=== PATIENT | male | born 1955 | race Two or more races ===

== ENCOUNTER 2018-01-05 11:30 | Inpatient (IN) | payer MEDICARE ==
[2018-01-05 12:05] LABS: % BASOPHILS 1.4 % (0.0-2.0); % EOSINOPHILS 0.2 % (0.0-5.0); % LYMPHOCYTES 10.5 % (20.0-50.0); % MONOCYTES 7.7 % (2.0-10.0); % NEUTROPHILS 80.2 % (40.0-80.0); BASOPHILE ABSOLUTE 0.1 Th/cumm (0-0.2); HEMATOCRIT 46.8 % (41.0-60); HEMOGLOBIN 15.6 gm/dL (12-16); LYMPHOCYTE ABSOLUTE 0.9 Th/cmm (1.5-3.0); MEAN CELL VOLUME 91.8 fl (80-99); MEAN CORPUSCULAR HEMOGLOBIN 30.6 pg (26.0-30.0); MEAN CORPUSCULAR HGB CONC 33.4 pg (28.0-36.0); MEAN PLATELET VOLUME 7.4 fl; MONOCYTE ABSOLUTE 0.6 Th/cmm (0.3-1.0); NEUTROPHILE ABSOLUTE 6.5 Th/cmm (1.8-8.0); PLATELET COUNT 257 Th/cmm (150-400); RED CELL DISTRIBUTION WIDTH 12.8 % (11.5-20.0); WHITE BLOOD COUNT 8.1 Th/cmm (4.8-10.8)
[2018-01-05 12:16] LABS: INR 1.06 (0.5-1.4)
[2018-01-05 12:20] LABS: ALB/GLOB RATIO 1.3 (1.0-1.8); ALBUMIN 4.3 gm/dL (4.2-5.5); ALKALINE PHOSPHATASE 70 U/L (34-104); BILIRUBIN,TOTAL 0.7 mg/dL (0.3-1.0); BUN - UREA NITROGEN 15 mg/dL (7-25); CALCIUM SERUM 9.1 mg/dL (8.6-10.3); CARBON DIOXIDE 24.9 mEq/L (21.0-31.0); CHLORIDE 104 mEq/L (98-107); CREATININE - SERUM 0.8 mg/dL (0.7-1.3); GFR AFRICAN-AMERICAN > 60.0 ml/min (>90); GFR NON AFRICAN-AMERICAN > 60.0 ml/min; GLUCOSE 111 mg/dL (70-105); POTASSIUM SERUM 3.9 mEq/L (3.5-5.1); SGOT 17 U/L (13-39); SGPT/ALT 16 U/L (7-52); SODIUM SERUM 138 mEq/L (136-145); TOTAL PROTEIN,SERUM 7.5 gm/dL (6.0-8.3)
--- NOTE | 2018-01-05 12:27 | ED Physician Chart ---
ED Chief Complaint/HPI - Patient Information Date Seen:: 01/05/18 Time Seen:: 12:01 Chief Complaint:: psychosis History of Present Illness:: This is a 62 yo psych patient sent to this er for an evaluation for psych placement and treatment who is blind taking prozac medication. he also states that he had heart surgery in he past for a heart condition and that he takes medication for hypertension. Allergies:: Allergies Allergy/AdvReac Type Severity Reaction Status Date / Time No Known Allergies Allergy Verified 01/05/18 11:48 Vitals:: Vital Signs - 8 hr 01/05/18 11:50 Temp 97.7 F HR 82 RR 19 BP 138/72 O2 Sat % 99 Historian:: Patient, Medical Records Review:: Nurse's Note Reviewed, Transfer documents Reviewed ED Review of Systems - Review of Systems General/Constitutional: No fever, No chills, No weight loss, No weakness, No diaphoresis, No edema, No loss of appetite Skin: No skin lesions, No rash, No bruising Head: No headache, No light-headedness Eyes: No loss of vision, No pain, No diplopia, Other (blindness of both eyes) ENT: No earache, No nasal drainage, No sore throat, No tinnitus Neck: No neck pain, No swelling, No thyromegaly, No stiffness, No mass noted Cardio Vascular: No chest pain, No palpitations, No PND, No orthopnea, No edema Pulmonary: No SOB, No cough, No sputum, No wheezing GI: No nausea, No vomiting, No diarrhea, No pain, No melena, No hematochezia, No constipation, No hematemesis G/U: No dysuria, No frequency, No hematuria Musculoskeletal: No bone or joint pain, No back pain, No muscle pain Endocrine: No polyuria, No polydipsia Psychiatric: Prior psych history, Depression, Anxiety, No suicidal ideation Hematopoietic: No bruising, No lymphadenopathy Allergic/Immuno: No urticaria, No angioedema Neurological: No syncope, No focal symptoms, No weakness, No paresthesia, No headache, No seizure, No dizziness, No confusion, No vertigo ED Past Medical History - Past Medical History Obtainable: Yes Past Medical History: HTN, CAD Family History: None Social History: Non Smoker, No Alcohol, No Drug Use, Care Facility Surgical History: other (heart surgery) Psychiatricy History: Depression, Schizophrenia Medication: Reviewed ED Physical Exam - Physical Examination General/Constitutional: Awake, Well-developed, well-nourished, Alert, No distress, GCS 15, Non-toxic appearing, Ambulatory Head: Atraumatic Eyes: Lids, conjuctiva normal, PERRL, EOMI Skin: Nl inspection, No rash, No skin lesions, No ecchymosis, Well hydrated, No lymphadenopathy ENMT: External ears, nose nl, Nasal exam nl, Lips, teeth, gums nl Neck: Nontender, Full ROM w/o pain, No JVD, No nuchal rigidity, No bruit, No mass, No stridor Respiratory: Nl effort/Exclusion, Clear to Auscultation, No Wheeze/Rhonchi/Rales Cardio Vascular: RRR, No murmur, gallop, rubs, NL S1 S2 GI: No tenderness/rebounding/guarding, No organomegaly, No hernia, Normal BS's, Nondistended, No mass/bruits, No McBurney tenderness : No CVA tenderness Extremities: No tenderness or effusion, Full ROM, normal strength in all extremities, No edema, Normal digits & nails Neuro/Psych: Alert/oriented, DTR's symmetric, Normal sensory exam, Normal motor strength, Judgement/insight normal, Mood normal (depressed and anxious), Normal gait, No focal deficits Misc: Normal back, No paraspinal tenderness ED Labs/Radiology/EKG Results - Lab Results Results: Laboratory Tests 01/05/18 01/05/18 11:55 11:55 WBC 8.1 RBC 5.10 Hgb 15.6 Hct 46.8 MCV 91.8 MCH 30.6 H MCHC Differential 33.4 RDW 12.8 Plt Count 257 MPV 7.4 Neutrophils % 80.2 H Lymphocytes % 10.5 L Monocytes % 7.7 Eosinophils % 0.2 Basophils % 1.4 PT 11.0 INR 1.06 Comments:: Abnormal Lab Results 01/05/18 01/05/18 01/05/18 11:55 11:55 11:55 WBC 8.1 RBC 5.10 Hgb 15.6 Hct 46.8 MCV 91.8 MCH 30.6 H MCHC Differential 33.4 RDW 12.8 Plt Count 257 MPV 7.4 Neutrophils % 80.2 H Lymphocytes % 10.5 L Monocytes % 7.7 Eosinophils % 0.2 Basophils % 1.4 PT 11.0 INR 1.06 Sodium 138 Potassium 3.9 Chloride 104 Carbon Dioxide 24.9 Anion Gap 13.0 BUN 15 Creatinine 0.8 Est GFR ( Amer) > 60.0 Est GFR (Non-Af Amer) > 60.0 BUN/Creatinine Ratio 18.8 Glucose 111 H Calcium 9.1 Total Bilirubin 0.7 AST 17 ALT 16 Alkaline Phosphatase 70 Total Protein 7.5 Albumin 4.3 Globulin 3.2 Albumin/Globulin Ratio 1.3 - Radiology Results Results: chest x-ray == no acute disease - EKG Interpretations EKG Time:: 12:33 Rate & Rhythm: rate = 77, sinus [place]: right Intervals: no ectopy seen ED Assessment - Assessment General Assessment: psychosis ED Septic Shock - . Is Septic Shock (SBP<90, OR Lactate>4 mmol\L) present?: No - <6hrs of presentation: Vital Signs: Vital Signs - 8 hr 01/05/18 11:50 Temp 97.7 F HR 82 RR 19 BP 138/72 O2 Sat % 99 ED Reassessment (Disposition) - Reassessment Reassessment Condition:: Unchanged - Diagnosis Diagnosis:: psychosis - Patient Disposition Discharge/Transfer:: Acute Care w/in this hosp Admitting Medical Physician:: Yelena James Admitting Psych Physician:: Herbert Fields Condition at Disposition:: Unchanged
[2018-01-05 12:57] LABS: URINE SOURCE CLEAN C
[2018-01-05 13:01] LABS: URINE BILIRUBIN NEGATIVE (NEGATIVE); URINE BLOOD SMALL (NEGATIVE); URINE GLUCOSE (UA) NEGATIVE (NEGATIVE); URINE KETONE NEGATIVE (NEGATIVE); URINE LEUKOCYTE ESTERASE NEGATIVE (NEGATIVE); URINE MICROSCOPIC INDICATED? YES; URINE NITRATE NEGATIVE (NEGATIVE); URINE PROTEIN NEGATIVE (NEGATIVE); URINE UROBILINOGEN 0.2 E.U./dL (0.2 - 1.0)
[2018-01-05 13:08] LABS: URINE CLARITY CLEAR (CLEAR); URINE COLOR YELLOW
[2018-01-05 13:13] LABS: URINE EPITHELIAL CELLS RARE /lpf (FEW); URINE RBC 0-2 /hpf (0-5); URINE WBC 0-2 /hpf (0-5)
[2018-01-05 13:14] LABS: URINE BACTERIA RARE /hpf (NONE SEEN); URINE SPERM FEW /hpf (NONE SEEN)
[2018-01-05 13:36] VITALS: BP 143/83
[2018-01-05] MEDS ORDERED: Magnesium Hydroxide (MOM) 30 mL UDC PO PRN (13:45)
[2018-01-05] MEDS ORDERED: Maalox 30 mL Cup PO PRN (13:45)
[2018-01-06] MEDS ORDERED: Non-Formulary Item 1 EA (Fluoxetine Hcl [Prozac] 40 MG) PO SCH (09:00)
[2018-01-06] MEDS: Multivitamin Tab PO SCH (09:19)
--- NOTE | 2018-01-06 09:36 | Diagnostic Imaging Report ---
CHEST X-RAY: AP view INDICATION: pain COMPARISON: None FINDINGS: Chronic interstitial lung changes are noted. There is no focal consolidation or pleural effusions The heart is normal in size. The osseous structures demonstrate no acute abnormalities. IMPRESSION: Chronic interstitial lung changes and possible COPD. No focal consolidation identified.
--- NOTE | 2018-01-06 16:59 | Psychiatric Evaluation ---
DATE OF SERVICE: 01/06/2018 IDENTIFYING DATA: The patient is a 62-year-old male living with his sister. Information obtained by directly interviewing the patient as well as reviewing the admission papers. JUSTIFICATION OF HOSPITALIZATION: The patient is admitted here on a 5150 as a danger to self. 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 Currently, the patient is feeling depressed and is stating that he is devil and he needs to punish himself. The patient has been evaluated at the ____ and was placed on a 5150 and admitted over here for stabilization. PAST PSYCHIATRIC HISTORY: Details are not known. MEDICAL HISTORY: Physical examination is requested to be done by Dr. James. SUBSTANCE ABUSE HISTORY: None. PHYSICAL OR SEXUAL ABUSE HISTORY: None. LEGAL PROBLEMS: None at this time. STRENGTH AND ASSETS: The patient is motivated and is living with his sister in [place]. MENTAL STATUS EXAMINATION: The patient is a 62-year-old, looking his stated age. Cooperative. Eye contact is fair. Mood is noted to be irritable. Affect is constricted. Insight and judgment at this time are noted to be still impaired. Impulse control seemed to be limited. Coping skills are noted to be limited. The patient is not presenting with any suicidal plans, but the patient feels helpless and hopeless. The patient's coping skills are noted to be extremely poor at this time. The patient has paranoia, but denies any command hallucinations. The patient is alert and oriented x 3. 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 DIAGNOSTIC IMPRESSION: Major depressive disorder, recurrent with psychotic symptoms. PLAN: To continue the patient with the Prozac and Risperdal and follow the patient. ESTIMATED LENGTH OF STAY: 5-7 days. DISCHARGE CRITERIA: He no longer a threat to self or others and be able to cope up with the stress. JOB# [id number]
--- NOTE | 2018-01-06 23:23 | History & Physical ---
ADMIT DATE: 01/05/2018 The patient was brought to the Emergency Room, was cleared and the patient was admitted to the psychiatric unit. The patient is a 62-year-old psych patient. The patient came in because the patient is having problem with agitation and confusion and hearing things. The patient is known to have history of blindness, history of heart condition, also has history of hypertension, taking medication. The patient was seen in the Emergency Room, was clear. The patient has no pain. No fever, no chills, no rigors. History of hypertension and coronary artery disease. PHYSICAL EXAMINATION: GENERAL: Well-developed, well-nourished male patient. VITAL SIGNS: As noted in the chart. HEAD: Normal. ENT: Normal. NECK: Supple, nontender. LUNGS: Clear. CARDIOVASCULAR SYSTEM: S1, S2 heard. ABDOMEN: Soft. Bowel sounds are heard. CENTRAL NERVOUS SYSTEM: Grossly normal. LABORATORY DATA: Hemoglobin was 15, creatinine was normal. Electrolytes were normal and the patient's x-ray was negative. The patient's EKG showed normal sinus rhythm. DIAGNOSES: Acute psychosis, history of hypertension, history of heart disease, history of blindness and history of heart surgery in the past. I am going to go ahead and continue all his medication and I will follow the patient along medically. [facility]# [id number]
[2018-01-07] MEDS: Multivitamin Tab PO SCH (09:05)
--- NOTE | 2018-01-07 15:40 | General Progress Note ---
Subjective - Review of Systems Events since last encounter: patient still very confused paranoid Objective - Results Result Diagrams: 01/05/18 11:55 01/05/18 11:55 Recent Labs: Laboratory Last Values WBC 8.1 Th/cmm (4.8-10.8) 01/05/18 11:55 RBC 5.10 Mil/cmm (4.30-5.70) 01/05/18 11:55 Hgb 15.6 gm/dL (12-16) 01/05/18 11:55 Hct 46.8 % (41.0-60) 01/05/18 11:55 MCV 91.8 fl (80-99) 01/05/18 11:55 MCH 30.6 pg (26.0-30.0) H 01/05/18 11:55 MCHC Differential 33.4 pg (28.0-36.0) 01/05/18 11:55 RDW 12.8 % (11.5-20.0) 01/05/18 11:55 Plt Count 257 Th/cmm (150-400) 01/05/18 11:55 MPV 7.4 fl 01/05/18 11:55 Neutrophils % 80.2 % (40.0-80.0) H 01/05/18 11:55 Lymphocytes % 10.5 % (20.0-50.0) L 01/05/18 11:55 Monocytes % 7.7 % (2.0-10.0) 01/05/18 11:55 Eosinophils % 0.2 % (0.0-5.0) 01/05/18 11:55 Basophils % 1.4 % (0.0-2.0) 01/05/18 11:55 PT 11.0 SECONDS (9.5-11.5) 01/05/18 11:55 INR 1.06 (0.5-1.4) 01/05/18 11:55 Sodium 138 mEq/L (136-145) 01/05/18 11:55 Potassium 3.9 mEq/L (3.5-5.1) 01/05/18 11:55 Chloride 104 mEq/L (98-107) 01/05/18 11:55 Carbon Dioxide 24.9 mEq/L (21.0-31.0) 01/05/18 11:55 Anion Gap 13.0 (7.0-16.0) 01/05/18 11:55 BUN 15 mg/dL (7-25) 01/05/18 11:55 Creatinine 0.8 mg/dL (0.7-1.3) 01/05/18 11:55 Est GFR ( Amer) > 60.0 ml/min (>90) 01/05/18 11:55 Est GFR (Non-Af Amer) > 60.0 ml/min 01/05/18 11:55 BUN/Creatinine Ratio 18.8 01/05/18 11:55 Glucose 111 mg/dL (70-105) H 01/05/18 11:55 Calcium 9.1 mg/dL (8.6-10.3) 01/05/18 11:55 Total Bilirubin 0.7 mg/dL (0.3-1.0) 01/05/18 11:55 AST 17 U/L (13-39) 01/05/18 11:55 ALT 16 U/L (7-52) 01/05/18 11:55 Alkaline Phosphatase 70 U/L (34-104) 01/05/18 11:55 Total Protein 7.5 gm/dL (6.0-8.3) 01/05/18 11:55 Albumin 4.3 gm/dL (4.2-5.5) 01/05/18 11:55 Globulin 3.2 gm/dL 01/05/18 11:55 Albumin/Globulin Ratio 1.3 (1.0-1.8) 01/05/18 11:55 TSH 1.81 uIU/ml (0.34-5.60) 01/05/18 11:55 Urine Source CLEAN C 01/05/18 11:40 Urine Color YELLOW 01/05/18 11:40 Urine Clarity CLEAR (CLEAR) 01/05/18 11:40 Urine pH 6.0 (4.6 - 8.0) 01/05/18 11:40 Ur Specific [place] 1.020 (1.005-1.030) 01/05/18 11:40 Urine Protein NEGATIVE mg/dL (NEGATIVE) 01/05/18 11:40 Urine Glucose (UA) NEGATIVE mg/dL (NEGATIVE) 01/05/18 11:40 Urine Ketones NEGATIVE mg/dL (NEGATIVE) 01/05/18 11:40 Urine Blood SMALL (NEGATIVE) H 01/05/18 11:40 Urine Nitrate NEGATIVE (NEGATIVE) 01/05/18 11:40 Urine Bilirubin NEGATIVE (NEGATIVE) 01/05/18 11:40 Urine Urobilinogen 0.2 E.U./dL (0.2 - 1.0) 01/05/18 11:40 Ur Leukocyte Esterase NEGATIVE (NEGATIVE) 01/05/18 11:40 Urine RBC 0-2 /hpf (0-5) H 01/05/18 11:40 Urine WBC 0-2 /hpf (0-5) 01/05/18 11:40 Ur Epithelial Cells RARE /lpf (FEW) 01/05/18 11:40 Urine Bacteria RARE /hpf (NONE SEEN) 01/05/18 11:40 Urine Mucus FEW /lpf (FEW) 01/05/18 11:40 Urine Sperm FEW /hpf (NONE SEEN) 01/05/18 11:40 - Physical Exam Vitals and I&O: Vital Signs Temp 97.6 F 01/07/18 14:27 Pulse 85 01/07/18 14:27 Resp 20 01/07/18 14:27 BP 123/76 01/07/18 14:27 Pulse Ox 97 01/07/18 14:27 Active Medications: Current Medications Acetaminophen (Tylenol) 650 mg PO Q4HR PRN PRN Reason: Mild Pain / Temp above 100 Stop: 03/06/18 13:44 Al Hydrox/Mg Hydrox/Simethicone (Maalox) 30 ml PO Q4HR PRN PRN Reason: GI DISTRESS Stop: 03/06/18 13:44 Amlodipine Besylate (Norvasc) 5 mg PO DAILY RE Stop: 03/07/18 08:59 Last Admin: 01/07/18 09:05 Dose: Not Given Fluoxetine HCl (Prozac) 40 mg PO DAILY RE Stop: 03/07/18 08:59 Last Admin: 01/07/18 09:05 Dose: 40 mg Lorazepam (Ativan) 0.5 mg PO Q4HR PRN; Protocol PRN Reason: Anxiety Stop: 02/04/18 13:44 Last Admin: 01/06/18 21:52 Dose: 0.5 mg Magnesium Hydroxide (Milk Of Magnesia) 30 ml PO HS PRN PRN Reason: Constipation Multivitamins/Vitamin C (Theragran) 1 tab PO DAILY RE Stop: 03/07/18 08:59 Last Admin: 01/07/18 09:05 Dose: 1 tab Risperidone (Risperdal) 1 mg PO BID RE; Protocol Stop: 03/06/18 16:59 Last Admin: 01/07/18 09:05 Dose: 1 mg Zolpidem Tartrate (Ambien) 5 mg PO HS PRN PRN Reason: Insomnia Stop: 03/06/18 13:44 Last Admin: 01/06/18 21:52 Dose: 5 mg Assessment/Plan - Problem List Patient Problems: All Active Problems THINKING OF WAYS TO KILL SELF (Acute)
--- NOTE | 2018-01-08 02:21 | Progress Notes ---
DATE: 01/07/2018 PSYCHIATRIC PROGRESS NOTE SUBJECTIVE: Staff was spoken to. The patient is interviewed. Mood is noted to be depressed. Affect is constricted. Insight and judgment are noted to be still impaired. Impulse control is noted to be limited. The patient is still suicidal. No homicidal ideation is noted. The patient is isolative and withdrawn. ASSESSMENT: The patient is still depressed. PLAN: To continue the patient with supportive therapy and follow up. JOB# [id number]
--- NOTE | 2018-01-08 02:48 | Consultation ---
DATE OF CONSULTATION: 01/07/2018 REFERRING PHYSICIAN: Herbert Fields M.D. TYPE OF CONSULTATION: Psychology. HISTORY OF PRESENT ILLNESS: The patient is a 62-year-old male. The patient lives with his sister according to the record. The patient is being admitted on 5150 as possible danger to self. The following is by review of the medical record and the patient's self-report. The patient stated that he was working until recently. The patient has been making statements about being the devil and the need to be punished. The patient denied any suicidal or homicidal ideation, plan or intention. The patient appears to be overtly psychotic as well as confused. He denied any suicidal ideation, plan or intention. PAST MEDICAL HISTORY: Please see history and physical by Dr. James. PAST PSYCHIATRIC HISTORY: Details are unknown. SUBSTANCE ABUSE HISTORY: The patient did not answer this question. PSYCHOSOCIAL HISTORY: The patient did not answer questions about family involvement or marital status or number of children. 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 The patient states he lives with his sister. The patient denied any history of physical or sexual abuse. The patient states that he is a Jainism. The patient stated no current legal problems. MENTAL STATUS EXAMINATION: The patient appears to be his stated age. The patient's attitude is cooperative. Eye contact is fair. Speech is spontaneous. Mood is easily frustrated. Affect is constricted. Thought process shows to be confused with possible delusional content. The patient denied any suicidal ideation, plan or intention. He denied any auditory or visual hallucinations. The patient stated that he feels hopeless. The patient stated possible hyper-anabaptism delusions, i.e., that he is the devil and needs to be punished. There is some evidence of paranoid ideation. The patient's behavior on the unit has been redirectable. Impulse control is fair. Concentration is fair to poor. Sensorium is alert and oriented x 3. The patient did not participate in the memory assessment. The patient did not participate in the interpretation of proverbs. Insight is poor. Judgment is compromised. DIAGNOSTIC IMPRESSION: AXIS I: Major depressive disorder, recurrent with psychotic symptoms. AXIS II: Deferred. AXIS III: Please see history and physical by Dr. James. TREATMENT PLAN: The patient has been seen by Dr. Fields for psychiatric evaluation and for the management of the patient's psychotropic medications. The patient is being continued on Prozac and Risperdal. We will provide supportive psychotherapy to include coping strategies for phase of life issues. We will provide reality orientation, reality differentiation, and reality integration. We will provide cognitive behavioral therapy to reduce the patient's depression and include coping mechanisms. We will provide motivational enhancement for the patient to become compliant and stay compliant with all aspects of his care and treatment. We will encourage the patient to verbalize his concerns and verbally contract for safety. Thank you, Dr. Fields, for this consult and the opportunity to participate in this patient's care. JOB# [id number] [place]
[2018-01-08] MEDS: Multivitamin Tab PO SCH (08:48)
--- NOTE | 2018-01-08 15:42 | Progress Notes ---
DATE: 01/08/2018 SUBJECTIVE: Staff was spoken to. The patient is interviewed. Mood is noted to be irritable. Affect is constricted. The patient is isolative and withdrawn. Coping skills are noted to be still poor. The patient is currently on 40 mg of the Prozac and the Risperdal 1 mg b.i.d. and has been able to tolerate the medication. No side effects to the medications are noted at this time. The patient is isolative and withdrawn. ASSESSMENT: The patient is still depressed. PLAN: To continue the patient with the supportive therapy. I encouraged the patient to verbalize the concerns rather than to act out. JOB# [id number]
[2018-01-09] MEDS: Multivitamin Tab PO SCH (08:39)
--- NOTE | 2018-01-09 14:13 | General Progress Note ---
Subjective - Review of Systems Events since last encounter: patient still depressed withdrawn denies cp,sob Objective - Results Result Diagrams: 01/05/18 11:55 01/05/18 11:55 Recent Labs: Laboratory Last Values WBC 8.1 Th/cmm (4.8-10.8) 01/05/18 11:55 RBC 5.10 Mil/cmm (4.30-5.70) 01/05/18 11:55 Hgb 15.6 gm/dL (12-16) 01/05/18 11:55 Hct 46.8 % (41.0-60) 01/05/18 11:55 MCV 91.8 fl (80-99) 01/05/18 11:55 MCH 30.6 pg (26.0-30.0) H 01/05/18 11:55 MCHC Differential 33.4 pg (28.0-36.0) 01/05/18 11:55 RDW 12.8 % (11.5-20.0) 01/05/18 11:55 Plt Count 257 Th/cmm (150-400) 01/05/18 11:55 MPV 7.4 fl 01/05/18 11:55 Neutrophils % 80.2 % (40.0-80.0) H 01/05/18 11:55 Lymphocytes % 10.5 % (20.0-50.0) L 01/05/18 11:55 Monocytes % 7.7 % (2.0-10.0) 01/05/18 11:55 Eosinophils % 0.2 % (0.0-5.0) 01/05/18 11:55 Basophils % 1.4 % (0.0-2.0) 01/05/18 11:55 PT 11.0 SECONDS (9.5-11.5) 01/05/18 11:55 INR 1.06 (0.5-1.4) 01/05/18 11:55 Sodium 138 mEq/L (136-145) 01/05/18 11:55 Potassium 3.9 mEq/L (3.5-5.1) 01/05/18 11:55 Chloride 104 mEq/L (98-107) 01/05/18 11:55 Carbon Dioxide 24.9 mEq/L (21.0-31.0) 01/05/18 11:55 Anion Gap 13.0 (7.0-16.0) 01/05/18 11:55 BUN 15 mg/dL (7-25) 01/05/18 11:55 Creatinine 0.8 mg/dL (0.7-1.3) 01/05/18 11:55 Est GFR ( Amer) > 60.0 ml/min (>90) 01/05/18 11:55 Est GFR (Non-Af Amer) > 60.0 ml/min 01/05/18 11:55 BUN/Creatinine Ratio 18.8 01/05/18 11:55 Glucose 111 mg/dL (70-105) H 01/05/18 11:55 Calcium 9.1 mg/dL (8.6-10.3) 01/05/18 11:55 Total Bilirubin 0.7 mg/dL (0.3-1.0) 01/05/18 11:55 AST 17 U/L (13-39) 01/05/18 11:55 ALT 16 U/L (7-52) 01/05/18 11:55 Alkaline Phosphatase 70 U/L (34-104) 01/05/18 11:55 Total Protein 7.5 gm/dL (6.0-8.3) 01/05/18 11:55 Albumin 4.3 gm/dL (4.2-5.5) 01/05/18 11:55 Globulin 3.2 gm/dL 01/05/18 11:55 Albumin/Globulin Ratio 1.3 (1.0-1.8) 01/05/18 11:55 TSH 1.81 uIU/ml (0.34-5.60) 01/05/18 11:55 Urine Source CLEAN C 01/05/18 11:40 Urine Color YELLOW 01/05/18 11:40 Urine Clarity CLEAR (CLEAR) 01/05/18 11:40 Urine pH 6.0 (4.6 - 8.0) 01/05/18 11:40 Ur Specific [place] 1.020 (1.005-1.030) 01/05/18 11:40 Urine Protein NEGATIVE mg/dL (NEGATIVE) 01/05/18 11:40 Urine Glucose (UA) NEGATIVE mg/dL (NEGATIVE) 01/05/18 11:40 Urine Ketones NEGATIVE mg/dL (NEGATIVE) 01/05/18 11:40 Urine Blood SMALL (NEGATIVE) H 01/05/18 11:40 Urine Nitrate NEGATIVE (NEGATIVE) 01/05/18 11:40 Urine Bilirubin NEGATIVE (NEGATIVE) 01/05/18 11:40 Urine Urobilinogen 0.2 E.U./dL (0.2 - 1.0) 01/05/18 11:40 Ur Leukocyte Esterase NEGATIVE (NEGATIVE) 01/05/18 11:40 Urine RBC 0-2 /hpf (0-5) H 01/05/18 11:40 Urine WBC 0-2 /hpf (0-5) 01/05/18 11:40 Ur Epithelial Cells RARE /lpf (FEW) 01/05/18 11:40 Urine Bacteria RARE /hpf (NONE SEEN) 01/05/18 11:40 Urine Mucus FEW /lpf (FEW) 01/05/18 11:40 Urine Sperm FEW /hpf (NONE SEEN) 01/05/18 11:40 - Physical Exam Vitals and I&O: Vital Signs Temp 97.8 F 01/09/18 04:45 Pulse 68 01/09/18 08:38 Resp 19 01/09/18 04:45 BP 123/77 01/09/18 08:38 Pulse Ox 98 01/09/18 04:45 Intake & Output 01/08/18 01/09/18 01/09/18 18:59 06:59 18:59 Intake Total 740 Balance 740 Intake: Oral 740 Other: # Voids 2 2 # Bowel Movements 0 0 Active Medications: Current Medications Acetaminophen (Tylenol) 650 mg PO Q4HR PRN PRN Reason: Mild Pain / Temp above 100 Stop: 03/06/18 13:44 Al Hydrox/Mg Hydrox/Simethicone (Maalox) 30 ml PO Q4HR PRN PRN Reason: GI DISTRESS Stop: 03/06/18 13:44 Amlodipine Besylate (Norvasc) 5 mg PO DAILY RE Stop: 03/07/18 08:59 Last Admin: 01/09/18 08:38 Dose: 5 mg Fluoxetine HCl (Prozac) 40 mg PO DAILY RE Stop: 03/07/18 08:59 Last Admin: 01/09/18 08:39 Dose: 40 mg Lorazepam (Ativan) 0.5 mg PO Q4HR PRN; Protocol PRN Reason: Anxiety Stop: 02/04/18 13:44 Last Admin: 01/09/18 10:40 Dose: 0.5 mg Magnesium Hydroxide (Milk Of Magnesia) 30 ml PO HS PRN PRN Reason: Constipation Multivitamins/Vitamin C (Theragran) 1 tab PO DAILY RE Stop: 03/07/18 08:59 Last Admin: 01/09/18 08:39 Dose: 1 tab Risperidone (Risperdal) 1 mg PO BID RE; Protocol Stop: 03/06/18 16:59 Last Admin: 01/09/18 08:39 Dose: 1 mg Zolpidem Tartrate (Ambien) 5 mg PO HS PRN PRN Reason: Insomnia Stop: 03/06/18 13:44 Last Admin: 01/06/18 21:52 Dose: 5 mg Assessment/Plan - Problem List Patient Problems: All Active Problems THINKING OF WAYS TO KILL SELF (Acute)
--- NOTE | 2018-01-10 01:25 | Progress Notes ---
DATE: 01/09/2018 PSYCHIATRIC PROGRESS NOTE SUBJECTIVE: Staff was spoken to. The patient is interviewed. Mood is noted to be irritable. Affect is constricted. The patient is stating that he is out of his surroundings and he does not feel comfortable. Coping skills are noted to be poor at this time. The patient is still depressed. Paranoia is noted, but the patient denies any command hallucinations. ASSESSMENT: The patient is still depressed. PLAN: To continue the patient with the current medications and follow up with supportive therapy. JOB# [id number]
[2018-01-10] MEDS: Multivitamin Tab PO SCH (09:42)
--- NOTE | 2018-01-10 11:40 | General Progress Note ---
Subjective - Review of Systems Events since last encounter: patient still depressed Objective - Results Result Diagrams: 01/05/18 11:55 01/05/18 11:55 Recent Labs: Laboratory Last Values WBC 8.1 Th/cmm (4.8-10.8) 01/05/18 11:55 RBC 5.10 Mil/cmm (4.30-5.70) 01/05/18 11:55 Hgb 15.6 gm/dL (12-16) 01/05/18 11:55 Hct 46.8 % (41.0-60) 01/05/18 11:55 MCV 91.8 fl (80-99) 01/05/18 11:55 MCH 30.6 pg (26.0-30.0) H 01/05/18 11:55 MCHC Differential 33.4 pg (28.0-36.0) 01/05/18 11:55 RDW 12.8 % (11.5-20.0) 01/05/18 11:55 Plt Count 257 Th/cmm (150-400) 01/05/18 11:55 MPV 7.4 fl 01/05/18 11:55 Neutrophils % 80.2 % (40.0-80.0) H 01/05/18 11:55 Lymphocytes % 10.5 % (20.0-50.0) L 01/05/18 11:55 Monocytes % 7.7 % (2.0-10.0) 01/05/18 11:55 Eosinophils % 0.2 % (0.0-5.0) 01/05/18 11:55 Basophils % 1.4 % (0.0-2.0) 01/05/18 11:55 PT 11.0 SECONDS (9.5-11.5) 01/05/18 11:55 INR 1.06 (0.5-1.4) 01/05/18 11:55 Sodium 138 mEq/L (136-145) 01/05/18 11:55 Potassium 3.9 mEq/L (3.5-5.1) 01/05/18 11:55 Chloride 104 mEq/L (98-107) 01/05/18 11:55 Carbon Dioxide 24.9 mEq/L (21.0-31.0) 01/05/18 11:55 Anion Gap 13.0 (7.0-16.0) 01/05/18 11:55 BUN 15 mg/dL (7-25) 01/05/18 11:55 Creatinine 0.8 mg/dL (0.7-1.3) 01/05/18 11:55 Est GFR ( Amer) > 60.0 ml/min (>90) 01/05/18 11:55 Est GFR (Non-Af Amer) > 60.0 ml/min 01/05/18 11:55 BUN/Creatinine Ratio 18.8 01/05/18 11:55 Glucose 111 mg/dL (70-105) H 01/05/18 11:55 Calcium 9.1 mg/dL (8.6-10.3) 01/05/18 11:55 Total Bilirubin 0.7 mg/dL (0.3-1.0) 01/05/18 11:55 AST 17 U/L (13-39) 01/05/18 11:55 ALT 16 U/L (7-52) 01/05/18 11:55 Alkaline Phosphatase 70 U/L (34-104) 01/05/18 11:55 Total Protein 7.5 gm/dL (6.0-8.3) 01/05/18 11:55 Albumin 4.3 gm/dL (4.2-5.5) 01/05/18 11:55 Globulin 3.2 gm/dL 01/05/18 11:55 Albumin/Globulin Ratio 1.3 (1.0-1.8) 01/05/18 11:55 TSH 1.81 uIU/ml (0.34-5.60) 01/05/18 11:55 Urine Source CLEAN C 01/05/18 11:40 Urine Color YELLOW 01/05/18 11:40 Urine Clarity CLEAR (CLEAR) 01/05/18 11:40 Urine pH 6.0 (4.6 - 8.0) 01/05/18 11:40 Ur Specific [place] 1.020 (1.005-1.030) 01/05/18 11:40 Urine Protein NEGATIVE mg/dL (NEGATIVE) 01/05/18 11:40 Urine Glucose (UA) NEGATIVE mg/dL (NEGATIVE) 01/05/18 11:40 Urine Ketones NEGATIVE mg/dL (NEGATIVE) 01/05/18 11:40 Urine Blood SMALL (NEGATIVE) H 01/05/18 11:40 Urine Nitrate NEGATIVE (NEGATIVE) 01/05/18 11:40 Urine Bilirubin NEGATIVE (NEGATIVE) 01/05/18 11:40 Urine Urobilinogen 0.2 E.U./dL (0.2 - 1.0) 01/05/18 11:40 Ur Leukocyte Esterase NEGATIVE (NEGATIVE) 01/05/18 11:40 Urine RBC 0-2 /hpf (0-5) H 01/05/18 11:40 Urine WBC 0-2 /hpf (0-5) 01/05/18 11:40 Ur Epithelial Cells RARE /lpf (FEW) 01/05/18 11:40 Urine Bacteria RARE /hpf (NONE SEEN) 01/05/18 11:40 Urine Mucus FEW /lpf (FEW) 01/05/18 11:40 Urine Sperm FEW /hpf (NONE SEEN) 01/05/18 11:40 - Physical Exam Vitals and I&O: Vital Signs Temp 98.6 F 01/10/18 06:55 Pulse 90 01/10/18 09:41 Resp 20 01/10/18 06:55 BP 109/63 01/10/18 09:41 Pulse Ox 97 01/10/18 06:55 Intake & Output 01/09/18 01/10/18 01/10/18 18:59 06:59 18:59 Intake Total 500 Balance 500 Intake: Oral 500 Other: # Voids 4 # Bowel Movements 0 Active Medications: Current Medications Acetaminophen (Tylenol) 650 mg PO Q4HR PRN PRN Reason: Mild Pain / Temp above 100 Stop: 03/06/18 13:44 Al Hydrox/Mg Hydrox/Simethicone (Maalox) 30 ml PO Q4HR PRN PRN Reason: GI DISTRESS Stop: 03/06/18 13:44 Amlodipine Besylate (Norvasc) 5 mg PO DAILY RE Stop: 03/07/18 08:59 Last Admin: 01/10/18 09:41 Dose: 5 mg Fluoxetine HCl (Prozac) 40 mg PO DAILY RE Stop: 03/07/18 08:59 Last Admin: 01/10/18 09:40 Dose: 40 mg Lorazepam (Ativan) 0.5 mg PO Q4HR PRN; Protocol PRN Reason: Anxiety Stop: 02/04/18 13:44 Last Admin: 01/10/18 10:23 Dose: 0.5 mg Magnesium Hydroxide (Milk Of Magnesia) 30 ml PO HS PRN PRN Reason: Constipation Multivitamins/Vitamin C (Theragran) 1 tab PO DAILY RE Stop: 03/07/18 08:59 Last Admin: 01/10/18 09:42 Dose: 1 tab Risperidone (Risperdal) 1 mg PO BID RE; Protocol Stop: 03/06/18 16:59 Last Admin: 01/10/18 09:42 Dose: 1 mg Zolpidem Tartrate (Ambien) 5 mg PO HS PRN PRN Reason: Insomnia Stop: 03/06/18 13:44 Last Admin: 01/09/18 21:06 Dose: 5 mg Assessment/Plan - Problem List Patient Problems: All Active Problems THINKING OF WAYS TO KILL SELF (Acute)
--- NOTE | 2018-01-10 21:55 | Progress Notes ---
DATE: 01/10/2018 SUBJECTIVE: Staff was spoken to. The patient is interviewed. Mood is noted to be anxious. The patient is stating that he has been doing a little bit okay today and suicidal ideation is resolving. No homicidal ideation is noted. The patient denies any command hallucinations at this time. The patient is stating that he misses his sister and he wants to go back and the outsole caser has been requested to coordinate the care with the sister and possibly set of a family session and arrange for the outpatient followup. JOB# [id number]
[2018-01-11] MEDS: Multivitamin Tab PO SCH (09:37)
--- NOTE | 2018-01-12 04:26 | Progress Notes ---
DATE: 01/11/2018 SUBJECTIVE: Staff was spoken to. The patient is interviewed. Mood is noted to be anxious. Affect is appropriate. Not suicidal or homicidal. Insight and judgment are noted to be improving. Impulse control is noted to be fair. Coping skills are noted to be fair. The patient has been able to verbalize the concerns rather than to act out. ASSESSMENT: The patient is stabilizing. PLAN: To discharge the patient today for followup on outpatient basis. JOB# [id number]
--- NOTE | 2018-01-25 20:28 | Discharge Summary ---
DATE OF DISCHARGE: 01/11/2018 IDENTIFYING DATA: The patient is a 62-year-old male living with his sister. JUSTIFICATION OF HOSPITALIZATION: The patient is admitted here on a 5150 as a danger to self. CHIEF COMPLAINT: "I'm feeling depressed." DIAGNOSES AT THE TIME OF THE ADMISSION: AXIS I: Major depressive disorder, recurrent with psychotic symptoms. AXIS II: None. AXIS III: As per Dr. James. HISTORY OF PRESENT ILLNESS: Please refer to the 01/06/2018 dictation done by me. Physical examination was done by Dr. James and is noted to be significant for a history of hypertension and coronary artery disease. HOSPITAL COURSE AND RESPONSE TO TREATMENT: The patient has been observed on inpatient unit, provided with supportive psychotherapy. The patient has been closely monitored for any suicidal gestures and the patient has been provided with the individual as well as family counseling and the patient started doing fairly well and the patient has been placed on the Prozac, which was gradually increased to 40 mg. The patient also has been given the Risperdal 1 mg at bedtime and has been encouraged to participate in the groups and verbalize the concerns. The patient's blood work has been reviewed and is noted to be within normal limits. The patient was finally discharged to the care of his sister to be followed up on an outpatient basis. MENTAL STATUS EXAMINATION: At the time of discharge, the patient's mood is noted to be anxious. Affect is appropriate. Not suicidal or homicidal. Insight and judgment are noted to be improving. Impulse control seems to be fair. Coping skills are also noted to be fair. The patient is not presenting with any threats to harm self or others at the time of discharge. CONDITION AT THE TIME OF DISCHARGE: Noted to be stable. DIAGNOSES AT THE TIME OF DISCHARGE: AXIS I: Major depressive disorder, recurrent with psychotic symptoms. AXIS II: None. AXIS III: Hypertension. AFTERCARE PLAN: The patient is discharged to [facility] to be followed up on an outpatient basis. PROGNOSIS: At the time of discharge is noted to be fair with the treatment. [facility]# [id number]
== END 2018-01-11 16:30 | disposition home or self-care (01) | DRG 885 ==
LOC: ER 11:30 → GERO2 12:48
PROVIDERS: ADMIT Psychiatry & Neurology Psychiatry; ATTEND Psychiatry & Neurology Psychiatry
DX: F33.3 Major depressive disorder, recurrent, severe with psychotic symptoms (principal); I25.10 Atherosclerotic heart disease of native coronary artery without angina pectoris; I11.9 Hypertensive heart disease without heart failure; Z88.8 Allergy status to other drugs, medicaments and biological substances
CPT/HCPCS: 36415-UA; 71045-TC; 80053-TC; 81001-TC; 84443-TC; 85025-TC; 85610-TC; 90899; 93005; G0410; Z7610